=== PATIENT | male | born 1960 | race Caucasian/White ===

== ENCOUNTER 2019-10-17 05:40 | Emergency (ER) | payer BC ==
[~2019-10-17] VITALS: Ht 172.7 cm; Wt 91.0 kg
[2019-10-17] MEDS ORDERED: SULFAMETHOXAZOLE/TRIMETHOPRIM 800/160MG TABLET PO ONE (06:45)
[2019-10-17] MEDS ORDERED: LIDOCAINE HCL/EPINEPHRINE 1%-EPI 1:100,000 20 ML VIAL INFIL ONE (06:45)
[2019-10-17] MEDS ORDERED: CEPHALEXIN 250MG CAPSULE PO ONE (06:45)
[2019-10-17] MEDS ORDERED: KETOROLAC 30MG/ML VIAL IM ONE (06:45)
[2019-10-17 08:01] VITALS: BP 150/80
== END 2019-10-17 08:03 | disposition home or self-care (01) ==
LOC: ER 05:40
DX: L02.31 Cutaneous abscess of buttock (principal)
CPT/HCPCS: 87070; 87077; 87186; 87205; 96372; 99284; J1885; J3490; Z7610